=== PATIENT | male | born 1960 | race Caucasian/White ===

== ENCOUNTER 2022-07-29 12:15 | Outpatient (CLI) | payer BC | END 2022-07-29 12:16 | disposition home or self-care (01) | LOC: MADLAB 12:15 → MADRAD 12:16 | PROVIDERS: ATTEND Internal Medicine | DX: J45.40 Moderate persistent asthma, uncomplicated (principal); J32.9 Chronic sinusitis, unspecified; J98.11 Atelectasis; Q79.1 Other congenital malformations of diaphragm | CPT/HCPCS: 70220; 71046 ==

== ENCOUNTER 2023-02-24 12:08 | Outpatient (CLI) | payer BC ==
[2023-02-24 17:39] LABS: Creatinine, Urine 73.91 mg/dL (63-166); Microalbumin Urine Less than 1.0 mg/dL (0.5-50.0)
== END 2023-02-24 12:09 | disposition home or self-care (01) ==
LOC: MADLABBHPM 12:08
PROVIDERS: ATTEND Internal Medicine
DX: E11.9 Type 2 diabetes mellitus without complications (principal)
CPT/HCPCS: 82043